=== PATIENT | male | born 1995 | race Caucasian/White ===

== ENCOUNTER 2019-04-11 10:05 | Emergency (ER) | payer OTHER ==
[~2019-04-11] VITALS: Ht 188 cm; Wt 150.6 kg
[2019-04-11 10:18] VITALS: BP 155/74; Ht 188 cm; Wt 150.6 kg
== END 2019-04-11 11:49 | disposition home or self-care (01) ==
LOC: ED 10:05
DX: S76.912A Strain of unspecified muscles, fascia and tendons at thigh level, left thigh, initial encounter (principal); R51 Headache; M17.12 Unilateral primary osteoarthritis, left knee; R42 Dizziness and giddiness; S20.211A Contusion of right front wall of thorax, initial encounter; I10 Essential (primary) hypertension; E66.9 Obesity, unspecified; Z68.41 Body mass index [BMI] 40.0-44.9, adult; Y04.2XXA Assault by strike against or bumped into by another person, initial encounter; Y93.89 Activity, other specified; Y92.89 Other specified places as the place of occurrence of the external cause; Y99.8 Other external cause status
CPT/HCPCS: J8597